=== PATIENT | female | born 2000 | race Caucasian/White ===

== ENCOUNTER 2020-11-10 06:14 | Emergency (ER) | payer OTHER, SELFPAY ==
--- NOTE | ~2020-11-10 | XR_ITS ---
EXAMINATION: XR ankle LT min 3V EXAM DATE: 11/10/2020 06:50 INDICATION: Initial encounter following injury, with pain of the left ankle. TECHNIQUE: Left ankle frontal, lateral and oblique projections obtained and reviewed. There is no pr ior study for comparison. FINDINGS: There is an acute closed posttraumatic fracture of the left fibular distal diaphysis with a bout 5 mm posterior lateral displacement. The medial aspect of the mortise appears slightly widened, but no medial malleolar fracture is identified. Appearance suspicious for ligamentous disruption of t he mortise medially. There are multiple sheets obscuring the posterior aspect of the tibial plafond on the lateral project ion, however there is also suspected to be a posterior malleolar fracture. IMPRESSION: Acute left distal fibular diaphyseal fracture with suspicion of ligamentous mortise disru ption medially and posterior malleolar fracture. Orthopedic consult. Reviewed, dictated and finalized at location A. K OPERATOR IMPRESSION: Acute left distal fibular diaphyseal fracture with suspicion of lig amentous mortise disruption medially and posterior malleolar fracture. Orthoped ic consult.
[2020-11-10 06:17] VITALS: BP 136/96; PULSE 96; RESP 18; TEMP 37.2; O2SAT 100
[2020-11-10] MEDS: HYDROcodone/acetaminophen (*CRX) 5-325 MG TABLET 1 TAB PO (06:53)
[2020-11-10 06:57] VITALS: BP 132/85; PULSE 88; RESP 18; O2SAT 100
--- NOTE | 2020-11-10 07:12 | ED.LOWEXIN ---
HPI - Extremity Injury (Lower) General Chief Complaint: Extremity Injury, Lower Stated Complaint: left ankle injury Time Seen by Provider: 11/10/20 06:59 Source: patient Mode of arrival: ambulatory Limitations: no limitations History of Present Illness HPI Narrative: This patient is a 20 year old female who presents for evaluation of left ankle injury. She accidentally slipped on ice this morning and she injured her right ankle. She states she is unable to bear weight. She reports sharp pain to left ankle. She denies numbness or tingling. She denies other injuries. She denies hitting her head or LOC. Related Data Home Medications Medication Instructions Recorded Confirmed levonorgestrel-ethinyl estrad tablet 11/10/20 [Larissia] Allergies Allergy/AdvReac Type Severity Reaction Status Date / Time amoxicillin Allergy Unknown Hives Verified 11/10/20 06:51 doxycycline Allergy Unknown ? NAUSEA Verified 11/10/20 06:42 Sulfa (Sulfonamide Allergy Unknown HIVES Verified 11/10/20 06:42 Antibiotics) Review of Systems Review of Systems: All systems reviewed & are unremarkable except as noted in HPI and below PMFSH Past Medical History Medical History (Updated 11/10/20 @ 12:23 by Roc Mariee MD) Patient denies medical problems Surgical History Surgical History (Updated 11/10/20 @ 07:15 by Nelsy Alicia MD) History of tonsillectomy Social History Social History Gender identity (if verbalized by the patient): Female Exam Const: General: no acute distress and alert Orientation/consciousness: patient oriented x3 HENMT: Head: normocephalic and atraumatic Eyes: EOM: EOMs intact bilaterally Resp: Effort & Inspection: normal respiratory effort Skin: General skin exam: normal color Rashes: no rashes Neuro: General: patient oriented x3 and moves all extremities Extrem: Other: left lateral ankle swelling, TTP lateral distal leg, able to move distally ,NVI Course Reevaluation(s) Reevaluation #1: Patient was placed in splint stirrups by tech. I discussed discharge plan and follow up with patient and mother. Date: 11/10/20 Time: 07:51 Consultations Consultation #1: I Discussed xray with Dr. Mariee. He states to splint patient and they will follow up in office. Date: 11/10/20 Time: 07:18 Vital Signs Vital signs: Vital Signs Temperature 99.0 F 11/10/20 06:17 Pulse Rate 96 11/10/20 06:17 Respiratory Rate 18 11/10/20 06:17 Blood Pressure 136/96 H 11/10/20 06:17 Pulse Oximetry 100 11/10/20 06:17 Temperature 99.0 F 11/10/20 07:23 Pulse Rate 88 11/10/20 06:57 Respiratory Rate 18 11/10/20 06:57 Blood Pressure 132/85 11/10/20 06:57 Pulse Oximetry 100 11/10/20 06:57 MDM - Extremity Injury (Lower) Imaging Data Radiologist's impression: ITS Impressions Ankle X-Ray 11/10/20 07:00 IMPRESSION: Acute left distal fibular diaphyseal fracture with suspicion of ligamentous mortise disruption medially and posterior malleolar fracture. Orthopedic consult. Discharge Plan Discharge Clinical Impression: Closed fracture of distal end of left fibula Qualifiers: Encounter type: initial encounter Fracture morphology: unspecified fracture morphology Qualified Code(s): S82.832A - Other fracture of upper and lower end of left fibula, initial encounter for closed fracture Patient Disposition: Home, Self-Care Condition: Stable Instructions: Ankle Fracture (ED), Leg Fracture (ED), Crutch Instructions (ED) Additional Instructions: Today you were evaluated for a fracture to your fibula. Keep leg elevated when possible and do not bear weight. Read discharge instructions. Call the orthopedic surgeon in order to arrange follow up . Prescriptions: New oxycodone-acetaminophen [Percocet] 5-325 mg tablet 1 tablet PO Q6H PRN (Reason: pain) Qty: 14 RF: 0 No Action levonorgestrel-ethinyl estrad [Larissia] 0.1-20
[2020-11-10 07:23] VITALS: TEMP 37.2
--- NOTE | 2020-11-10 07:48 | PC.NURSE ---
Family/patient states they have crutches at home for use. Refusing crutches from ED at this time.
== END 2020-11-10 08:07 | disposition home or self-care (01) ==
PROVIDERS: Emergency Provider General Practice; Family Provider Pediatrics; PCP Pediatrics
DX: S89.392A Other physeal fracture of lower end of left fibula, initial encounter for closed fracture (principal); W00.0XXA Fall on same level due to ice and snow, initial encounter
CPT/HCPCS: 29515; 73610; 99284; A9270

== ENCOUNTER 2020-11-10 12:40 | Outpatient (CLI) | payer OTHER, SELFPAY ==
--- NOTE | ~2020-11-10 | CT_ITS ---
EXAMINATION: CT ankle LT wo con DATE: 11/10/2020 13:18 INDICATION: Left ankle pain post fall TECHNIQUE: High resolution computed tomography (CT) of the left ankle was performed without intraveno us contrast. Additional sagittal and coronal reconstructions were performed. Automated exposure contr ol and iterative reconstruction technique were employed. The dose-length product was 417.35 mGy-cm. COMPARISON: Radiographs dated 10/31/2020 FINDINGS: Again seen is a mildly comminuted fractures of the distal left fibular diaphysis with one cortical wi dth lateral displacement at the oblique fracture plane exiting the medial cortex approximately 6 cm a priscilla the level of the tibiotalar joint line. There is however a nondisplaced fracture plane which ext ends distally to at least 1 cm of the level of the tibiotalar joint line before becoming indiscernibl e. Mildly comminuted posterior malleolar fracture which involves approximately 2.0 x 0.9 cm region of th e posterior aspect of the tibial plafond. The main posterior fragment is angulated slightly posterior ly with widening of the inferior aspect of the coronally oriented fracture plane. There are few tiny bone fragment arising from the articular cortex which are proximally impacted within the fracture zara ne. This results in an approximately 6 x 3 mm fracture gap at the lateral aspect of the posterior tib ial plafond. There is prominent soft tissue swelling about the medial malleolus without associated fractures sugge sting this could be related to the deltoid ligament sprain. The ankle mortise remains congruent with no evident widening of the medial clear space. Normal variant os supra naviculare along the dorsal ma rgin of the proximal navicula. Joint spaces are otherwise unremarkable. IMPRESSION: 1. Comminuted fractures of the distal left fibular diaphysis and posterior malleolus of the distal ti ina. 2. Prominent soft tissue swelling overlying the medial malleolus where there is no evident fractures suggesting a deltoid ligament sprain although there is no evident widening of the medial clear space on nonstressed imaging. Reviewed, dictated and finalized at location B. N DISPATCHER IMPRESSION: 1. Comminuted fractures of the distal left fibular diaphysis and posterior mall eolus of the distal tibia. 2. Prominent soft tissue swelling overlying the medial malleolus where there is no evident fractures suggesting a deltoid ligament sprain although there is no evident widening of the medial clear space on nonstressed imaging.
== END 2020-11-10 12:41 | disposition home or self-care (01) ==
LOC: ANHIMG 12:48
PROVIDERS: PCP Pediatrics; Visit Provider Orthopaedic Surgery
DX: S93.439A Sprain of tibiofibular ligament of unspecified ankle, initial encounter (principal); X58.XXXA Exposure to other specified factors, initial encounter
CPT/HCPCS: 73700

== ENCOUNTER 2020-11-11 09:00 | Outpatient (CLI) | payer OTHER, SELFPAY ==
[2020-11-11 18:47] LABS: SARS-CoV-2 RNA PCR Negative
== END 2020-11-11 09:01 | disposition home or self-care (01) ==
LOC: ANHCOVIDDT 09:50
PROVIDERS: PCP Pediatrics; Visit Provider Orthopaedic Surgery
DX: Z01.812 Encounter for preprocedural laboratory examination (principal); Z20.822 Contact with and (suspected) exposure to COVID-19
CPT/HCPCS: C9803; U0003; U0005

== ENCOUNTER 2020-11-16 00:48 | Day surgery (SDC) | payer OTHER, SELFPAY ==
[2020-11-15 09:05] VITALS: BMI 28.3
--- NOTE | ~2020-11-16 | XR_ITS ---
EXAMINATION: XR surgery orthopedic EXAM DATE: 11/16/2020 14:18 INDICATION: Left ankle syndesmosis repair. TECHNIQUE: Fluoroscopy used during Left ankle syndesmosis repair performed by Dr. Scott Cruz MD. The DAP for this procedure was 0.1 mGym2. Comparison made to casted left ankle 11/14/2020 FINDINGS: There is a left fibular distal diaphyseal fracture. There are tracts, supporting anchors a long the medial aspect of the tibia and lateral aspect of the fibula, bridging the distal tibiofibula r syndesmosis. Correlate with procedure note. IMPRESSION: Fluoroscopy used during surgical fixation left distal tibiofibular syndesmosis. Reviewed, dictated and finalized at location B. FARM SUPPORT SPECIALIST
--- NOTE | 2020-11-16 07:23 | WPDHPUPDATE1 ---
History and Physical Update Update Date/Time: 11/16/20 07:23 History and Physical has been reviewed, including an updated exam of the patient. There are NO changes in the patient's condition. Covid test negative. Risks, benefits, and alternatives have been discussed and questions answered. Patient agrees to proceed with procedure.
--- NOTE | 2020-11-16 08:03 | WPDANESEPPF ---
Anes - Initial Pre Proc Eval Procedure: Operation Date: 11/16/20 12:30 Proposed Procedures p Open Reduction Internal Fixation Left Ankle Fracture / Syndesmosis - Scott Cruz MD Date/Time: 11/16/20 08:03 Surgeon: Scott Cruz MD Pre Op Diagnosis: left ankle fx Patient Data Age: 20 Gender: F Height: 1.65 m Weight: 77.2 kg Allergies Allergy/AdvReac Type Severity Reaction Status Date / Time amoxicillin Allergy Severe Hives Verified 11/15/20 09:01 doxycycline AdvReac Mild ? NAUSEA Verified 11/15/20 09:01 Sulfa (Sulfonamide AdvReac Mild Dry Mouth Verified 11/15/20 09:01 Antibiotics) Home Medications Medication Instructions Recorded Confirmed Type levonorgestrel-ethinyl estrad 1 tablet PO DAILY 11/10/20 11/15/20 History [Larissia] oxycodone-acetaminophen [Percocet] 1 tablet PO Q6H PRN #14 tablet 11/10/20 11/15/20 Rx lactobacillus combination no.8 3 3,000 mmu cells PO DAILY 11/14/20 11/15/20 History billion cell capsule aspirin,buffered (calcium 1 tablet PO DAILY #30 tablet 11/15/20 11/15/20 Rx carbonate-magnesium) 325 mg tablet biotin 1,000 mcg PO DAILY 11/15/20 11/15/20 History tramadol 50 mg tablet 50 mg PO Q4H PRN #20 tablet 11/15/20 11/15/20 Rx Patient hx anesthesia problems: post op nausea/vomiting Family hx anesthesia problems: none PMFSH Past Medical History Medical History (Updated 11/14/20 @ 13:22 by Saige Moon, RT(R)) Eczema History of adverse reaction to anesthesia Nausea Surgical History Surgical History (Updated 11/14/20 @ 13:23 by Saige Moon RT(R)) History of tonsillectomy 2014 History of wisdom tooth extraction 2018 Social History Social History (Updated 11/14/20 @ 13:24 by Saige Moon RT(R)) Smoking status: Never smoker Alcohol intake: never Substance use: never Substance use type: does not use Living arrangements: with family Gender identity (if verbalized by the patient): Female Anes - Eval Final PreProcedure Day of Procedure 11/16/20 08:03 Patient weight: overweight Heart: regular rate and rhythm Lungs: clear to auscultation and normal air movement Airway: Mallampati scale class II Neurological: alert and oriented Last oral intake: >/= 8 hours ASA classification: II Emergent: no Anesthetic plan: proceed Anesthesia type and monitoring: general LMA Informed Consent: The patient's anesthetic plan and its attendant risks and benefits were discussed with the patient/family/POA. Questions were solicited and answers provided to the satisfaction of the patient/family/POA.
[2020-11-16 11:15] VITALS: BP 113/73; PULSE 86; RESP 20; TEMP 36.8; O2SAT 98
[2020-11-16] MEDS: LACTATED RINGERS 1,000 ML 30 ML IV CONT ×2 (11:17→14:09)
[2020-11-16] MEDS: ACETAMINOPHEN 500 MG TABLET 1000 MG PO (11:18)
[2020-11-16] MEDS: KETOROLAC 15 MG/ML VIAL (*BKC) IV PUSH (11:19)
--- NOTE | 2020-11-16 11:45 | SUR.PREOP ---
patient does not require crutch training as she has already received training and been using crutches at home.
[2020-11-16] MEDS: CLINDAMYCIN 900 MG/D5W 50 ML 900 MG/50 ML PIGGYBACK 50 MG IVPB (12:58)
[2020-11-16] MEDS: BUPIVACAINE HCL 0.5% PF 30 ML VIAL INFILTRATE (12:59)
--- NOTE | 2020-11-16 13:44 | WPDANESPNB ---
Anes - Peripheral Nerve Block Date/Time: 11/16/20 13:44 I have discussed with the patient/family/POA the placement of a peripheral nerve block for post-operative pain management, including associated risks, benefits, complications, and side effects. Alternative methods of post-operative analgesia were detailed. Questions were solicited and answers provided to the satisfaction of the patient/family/POA. Time-Out: A pre-procedural Time-Out was completed immediately before starting the procedure and confirmed: Patient Identification, Site, Procedure, Patient Position and the Availability of Requisite Equipment. Clinical Indications: Acute post-operative pain management requested by the operative surgeon. Nerve Block Insertion Note Anes-nerve block: posterior fossa sciatic (20cc) left Patient position: supine Skin prep: chlorhexidine Needle: 22 gauge, stimulating, insulated echogenic needle. Needle length: 80 mm Technique: ultrasound (in plane) Injectate: bupivacaine 0.5% with epi 5 mcg/ml (20cc) Observations: tolerated well Complications: none Procedure start time:: 1210 Procedure end time:: 121
[2020-11-16 14:09] VITALS: BP 99/53; PULSE 60; RESP 16; TEMP 36.6; O2SAT 100
[2020-11-16 14:20] VITALS: BP 108/71; PULSE 72; RESP 11; O2SAT 100
--- NOTE | 2020-11-16 14:28 | PM.PROC ---
Procedure Note - Detailed Date of procedure: 11/16/20 Pre-op diagnosis: left ankle fx Left syndesmosis disruption Post-op diagnosis: same Procedure performed: Open reduction internal fixation left distal tibia fibular syndesmosis Description of procedure: Indications: Patient is a 20-year-old woman who sustained an injury to the left leg the with a distal fibular fracture and syndesmosis disruption. There is displacement and instability. She presents for operative treatment. What was done: Patient identified in the preoperative holding. Informed consent given. Operative extremity marked. Patient received intravenous antibiotics. Patient brought to the operating room where underwent general anesthetic by anesthesia team. Positioned supine on operating room table. Time-out performed confirming the patient, site of the surgery and the plan. Left foot and ankle prepped draped usual sterile surgical fashion using ChloraPrep skin solution. Thigh tourniquet inflated to 250 mmHg. Longitudinal incision made over the distal fibula with 15 blade knife. Hemostasis controlled electrocautery. Fascia incised in line with skin incision. Bone-holding clamp then position from the medial malleolus to the lateral malleolus and with the ankle in neutral dorsiflexion reduction of the syndesmosis and the fibula fracture performed. This was verified with image intensification. Fixation achieved with a 2 hole plate and a [employer] tight rope system. Two of these were placed with good fixation. Clamp was removed and image intensification confirmed stability of the ankle joint and the syndesmosis as well as reduction and stability of the fibular fracture. Wound was thoroughly irrigated with antibiotic solution and the fascia repaired with 3 Monocryl interrupted suture. Skin repaired with running subcuticular 3 0 Monocryl suture and glue used for the skin. Sterile dressing applied. The patient was then woken from anesthesia, extubated and taken to the recovery room in stable condition. All sponge, needle, instrument counts were correct at the end of the case. Implants: [employer] FiberWire tight rope system x2, 2 hole plate Anesthesia: GLMA Surgeon: Scott Cruz MD Dynamometer Tester: 1st seismic survey assistant Estimated blood loss (mL): 10 Tourniquet time (min): 60 Drains: No Packing: No Pathology: none sent Complications: None Condition: stable Disposition: PACU
[2020-11-16 14:35] VITALS: BP 110/60; PULSE 74; RESP 15; O2SAT 100
[2020-11-16 14:46] VITALS: BP 140/84; PULSE 67; RESP 20
[2020-11-16 15:15] VITALS: BP 120/60; PULSE 70; RESP 20
== END 2020-11-16 15:35 | disposition home or self-care (01) ==
PROVIDERS: Family Provider Pediatrics; PCP Pediatrics; Visit Provider Orthopaedic Surgery
PROC: (CPT 27792; principal; 2020-11-16 12:30)
DX: S82.832A Other fracture of upper and lower end of left fibula, initial encounter for closed fracture (principal); S93.432A Sprain of tibiofibular ligament of left ankle, initial encounter; G89.18 Other acute postprocedural pain; W01.0XXA Fall on same level from slipping, tripping and stumbling without subsequent striking against object, initial encounter
CPT/HCPCS: 27792; 27829; 64445; A9270; C1713; J1100; J1885; J2250; J2405; J2704; J3010; J7120

== ENCOUNTER → 2021-10-22 10:21 | Outpatient (CLI) | payer OTHER, SELFPAY ==
--- NOTE | ~2021-10-22 | CT_ITS ---
EXAMINATION: CT ankle LT wo con DATE: 10/22/2021 10:45 INDICATION: Sprain of the tibiofibular ligament of the left ankle TECHNIQUE: High resolution computed tomography (CT) of the left ankle was performed without intraveno us contrast. Additional sagittal and coronal reconstructions were performed. Automated exposure contr ol and iterative reconstruction technique were employed. The dose-length product was 162.71 mGy-cm. COMPARISON: None FINDINGS: Postoperative change of a distal tibiofibular syndesmotic fixation with a pair of metallic buttons on the tibial side and a larger plate on the fibular side of a pair of lucent tunnels extending across the metaphyseal regions of the tibia and fibular for syndesmotic wire fixation. Small intra-articular posterior malleolar fracture involving a small portion of the posterolateral margin of the articular surface of the tibial plafond has healed in essentially anatomic alignment with no significant incon gruity and 1-2 mm maximal width of a shallow gap along the articular cortex. No other fractures ident ified. Alignment remains essentially anatomic. Joint spaces appear normal. Soft tissues are unremarka ble. No evident left ankle joint effusion. IMPRESSION: 1. Expected appearance of a distal left tibiofibular syndesmotic wire fixation with congruent ankle m ortise. 2. Old healed posterior malleolar fracture in essentially anatomic alignment without significant frac ture gap or incongruity along the posterior most articular surface of the tibial plafond. Reviewed, dictated and finalized at location A. K FOODS MIXER OPERATOR IMPRESSION: 1. Expected appearance of a distal left tibiofibular syndesmotic wire fixation with congruent ankle mortise. 2. Old healed posterior malleolar fracture in essentially anatomic alignment wi thout significant fracture gap or incongruity along the posterior most articula r surface of the tibial plafond.
== END ==
PROVIDERS: Visit Provider Orthopaedic Surgery
DX: S93.432S Sprain of tibiofibular ligament of left ankle, sequela (principal); X58.XXXS Exposure to other specified factors, sequela
CPT/HCPCS: 73700